=== PATIENT | female | born 1960 | race Caucasian/White ===

== ENCOUNTER → 2017-07-06 | Outpatient (CLI) | payer OTHER | LOC: CARDREHAB 10:31 | DX: G47.30 Sleep apnea, unspecified (principal); R53.83 Other fatigue; R06.83 Snoring | CPT/HCPCS: G0399 ==

== ENCOUNTER → 2020-09-29 | Outpatient (CLI) | payer OTHER | LOC: RAD 11:11 | DX: M17.12 Unilateral primary osteoarthritis, left knee (principal) ==

== ENCOUNTER 2024-12-09 05:31 | Emergency (ER) | payer MEDICARE ==
[~2024-12-09] VITALS: Ht 175.3 cm; Wt 80.4 kg
[2024-12-09] MEDS ORDERED: Orphenadrine 60 MG/2ML AMP IM ONE (06:15)
[2024-12-09] MEDS ORDERED: Ketorolac 30 MG/ML VIAL IM ONE (06:15)
[2024-12-09 06:29] LABS: BASO # 0.02 K/mm3 (0.02-0.10); HEMATOCRIT 37.6 % (37.0-47.0); HEMOGLOBIN 12.3 g/dL (12.5-16.0); LYMPH# 1.64 K/mm3 (1.50-4.00); MEAN CELL VOLUME 87 fl (78-100); MEAN CORPUSCULAR HEMOGLOBIN 29 pg (27-31); MEAN CORPUSCULAR HGB CONC 33 g/dL (33-37); MEAN PLATELET VOLUME 9.5 fl (7.4-10.4); MONO # 1.39 K/mm3 (0.20-0.80); NEU # 18.32 K/mm3 (1.40-6.50); PLATELET COUNT 291 K/mm3 (130-400); RED BLOOD COUNT 4.31 M/mm3 (4.10-5.30); RED CELL DISTRIBUTION WIDTH 13.4 % (11.5-14.5)
[2024-12-09] MEDS ORDERED: NS 1,000 ML IV SCH ×2 (06:30→10:00)
[2024-12-09] MEDS ORDERED: Ondansetron 4 MG/2 ML VIAL IV ONE (06:30)
[2024-12-09] MEDS ORDERED: Orphenadrine 60 MG/2ML AMP IV ONE (06:30)
[2024-12-09] MEDS ORDERED: Ketorolac 30 MG/ML VIAL IV ONE (06:30)
[2024-12-09 06:34] LABS: WHITE BLOOD COUNT 21.4 K/mm3 (4.8-10.8)
[2024-12-09 06:37] LABS: URINE APPEARANCE TURBID (CLEAR); URINE COLOR YELLOW (YELLOW); URINE PROTEIN(semi-quant) 1+ (NEGATIVE)
[2024-12-09 06:38] LABS: ALBUMIN 4.5 g/dL (3.4-4.8)
[2024-12-09 06:38] LABS: URINE BILIRUBIN 1+ (NEGATIVE); URINE BLOOD 2+ (NEGATIVE); URINE GLUCOSE NEGATIVE (NEGATIVE); URINE KETONE 1+ (NEGATIVE); URINE LEUKOCYTE ESTERASE TRACE (NEGATIVE); URINE MUCUS PRESENT (NOT PRESENT); URINE NITRATE NEGATIVE (NEGATIVE)
[2024-12-09 06:39] LABS: CALCIUM 9.8 mg/dL (8.3-10.5)
[2024-12-09 06:40] LABS: TOTAL PROTEIN 7.5 g/dL (6.2-8.1)
[2024-12-09] MEDS ORDERED: cefTRIAXone 1 G in Water For Injection,Sterile 10 ML IV ONE ×2 (07:15→08:15)
[2024-12-09] MEDS ORDERED: Iohexol 300 - 100 ML VIAL IV ONE (07:26)
[2024-12-09 15:42] VITALS: BP 118/67
== END 2024-12-09 15:42 | disposition short-term general hospital (02) ==
LOC: ED 05:31
PROVIDERS: Nurse Practitioner
DX: K85.90 Acute pancreatitis without necrosis or infection, unspecified (principal); K57.32 Diverticulitis of large intestine without perforation or abscess without bleeding
CPT/HCPCS: J0696; J1836; J1885; J2405; J7030; Q9967